=== PATIENT | male | born 1970 | race Caucasian/White ===

== ENCOUNTER → 2019-03-22 | Outpatient (CLI) | payer OTHER ==
--- NOTE | 2019-03-22 11:01 | RAD ---
Chest radiograph 03/22/2019 12:00 AM INDICATION: COPD COMPARISON: None available TECHNIQUE: Frontal and lateral views of the chest are provided. FINDINGS: The cardiomediastinal silhouette is within normal limits. There are no pleural effusions. There is no pulmonary vascular congestion. There is no pneumothorax. The lungs are clear. Flattening of the diaphragms is suggestive of air trapping. Mild pulmonary emphysematous changes are noted. No significant osseous abnormality is identified. IMPRESSION: COPD changes without acute cardiopulmonary process. Electronically signed by: Yohana Newman MD (03/22/2019 10:58 AM) [id number]
== END | disposition home or self-care (01) ==
LOC: EDBD 09:48 → PF 09:48
PROVIDERS: ATTEND Internal Medicine
DX: J43.9 Emphysema, unspecified (principal)
CPT/HCPCS: 71046; 94010; 94729

== ENCOUNTER → 2019-11-21 | Outpatient (CLI) | payer OTHER ==
--- NOTE | 2019-11-21 12:56 | RAD ---
EXAM: Bilateral knees, 2 views. HISTORY: Pain. COMPARISON: None. FINDINGS: 2 views of both knees are obtained. There is no fracture, dislocation or subluxation. There is bilateral medial and lateral compartment chondrocalcinosis. There are small left greater than right knee effusions. IMPRESSION: 1. Bilateral knee chondrocalcinosis and small left greater than right knee effusions. 2. No acute osseous finding. Electronically signed by: Yany Bhatti MD (11/21/2019 12:53 PM) [id number]
== END | disposition home or self-care (01) ==
LOC: RAD 10:20
DX: M11.262 Other chondrocalcinosis, left knee (principal); M11.261 Other chondrocalcinosis, right knee; M25.462 Effusion, left knee; M25.461 Effusion, right knee
CPT/HCPCS: 73560